=== PATIENT | female | born 1990 | race Two or more races ===

== ENCOUNTER 2017-12-31 05:43 | Inpatient (IN) | payer OTHER ==
[2017-12-31] MEDS: ELECTROLYTE-148 SOLN 1,000 ML IV SCH ×2 (06:15→14:00)
[2017-12-31] MEDS ORDERED: BETAMET ACET/BETAMET NA PH 30 MG/5 ML VIAL IM ONE (06:30)
[2017-12-31] MEDS ORDERED: AMPICILLIN - 2 GM in SODIUM CHLORIDE 100 ML IVPB ONE (06:30)
[2017-12-31] MEDS ORDERED: TUBERCULIN PPD 5 TU/0.1ML SYRINGE (IN PATIENT USE ONLY) ID ONE (06:36)
[2017-12-31 07:11] LABS: BASO % 0.2 % (0-2.0); EOS % 0.6 % (0-4.5); HEMOGLOBIN 12.7 GM/dL (10.7-15.3); LYMPH % 17.4 % (8-40); MCH 26.4 pg (25.7-33.7); MCHC 34.3 g/dl (32.0-36.0); MEAN CELL VOLUME 77.1 fl (80-96); MEAN PLT VOLUME 9.7 fl (7.5-11.1); MONO % 4.4 % (3.8-10.2); NEUT % 77.4 % (42.8-82.8); PLATELET COUNT 152 K/MM3 (134-434); RBC 4.79 M/mm3 (3.60-5.2); RDW 17.7 % (11.6-15.6); WHITE BLOOD COUNT 8.6 K/mm3 (4.0-10.0)
[2017-12-31 07:14] VITALS: BMI 31.9
[2017-12-31 08:06] LABS: INR 1.04 (0.82-1.09); PROTHROMBIN TIME (PATIENT) 11.7 SEC (9.7-13.0)
[2017-12-31 08:09] LABS: ACTIVATED PTT 25.7 SECONDS (25.2-36.5)
[2017-12-31 08:14] LABS: ANION GAP 12 (8-16); BLOOD UREA NITROGEN 5 mg/dL (7-18); CALCIUM 8.8 mg/dL (8.5-10.1); CHLORIDE 109 mmol/L (98-107); CO2 20 mmol/L (21-32); CREATININE 0.4 mg/dL (0.55-1.02); GLUCOSE,RANDOM 87 mg/dL (74-106); SODIUM 141 mmol/L (136-145)
[2017-12-31 08:17] LABS: POTASSIUM 4.1 mmol/L (3.5-5.1)
[2017-12-31] MEDS: AMPICILLIN - 1 GM in SODIUM CHLORIDE 100 ML IVPB SCH ×3 (10:30→18:14)
--- NOTE | 2017-12-31 11:33 | HP ---
Past Medical History - Admission Chief Complaint: Rupture of membrane History of Present Illness: 27 yo , @ 35 weeks gestation, EDC 02/10/18, presents to L&D c/o rupture of membrane. Upon admission there was evidence of gross pooling but cervix was closed. History Source: Patient Limitations to Obtaining History: No Limitations - Past Medical History ...: 1 ...Para: 0 ...Term: 0 ...: 0 ...Spon : 0 ...Induced : 0 ...Multiple Gestation: 0 ...LMP: 05/06/17 ... Weeks Gestation by Dates: 34.1 ...EDC by Dates: 02/10/18 ...EDC by Sono: 02/03/18 - Past Surgical History Past Surgical History: Yes: None Hx Myomectomy: No Hx Transabdominal Cerclage: No - Smoking History Smoking history: Never smoked Have you smoked in the past 12 months: No - Alcohol/Substance Use Hx Alcohol Use: No History of Substance Use: reports: None - Social History Usual Living Arrangement: Yes: With Spouse Home Medications - Allergies Allergies/Adverse Reactions: Allergies Allergy/AdvReac Type Severity Reaction Status Date / Time No Known Allergies Allergy Verified 12/28/17 11:03 - Home Medications Home Medications: Ambulatory Orders Ferrous Sulfate [Iron] 325 mg PO DAILY 12/28/17 Vit No.130/Iron/Folic [ Vitamins] 1 each PO DAILY 12/28/17 Family Disease History - Family Disease History Family History: Unremarkable Review of Systems - Review of Systems Constitutional: reports: No Symptoms Eyes: reports: No Symptoms HENT: reports: No Symptoms Neck: reports: No Symptoms Cardiovascular: reports: No Symptoms Respiratory: reports: No Symptoms Gastrointestinal: reports: No Symptoms Genitourinary: reports: Other (Rupture of membrane) Breasts: reports: No Symptoms Reported Musculoskeletal: reports: No Symptoms Integumentary: reports: No Symptoms Neurological: reports: No Symptoms Psychiatric: reports: No Symptoms Pain Intensity: 0 Physical Exam - Maternity Vital Signs: Vital Signs Temperature 98.7 F 12/31/17 10:00 Pulse Rate 98 H 12/31/17 10:00 Respiratory Rate 12/31/17 10:00 Blood Pressure 124/76 12/31/17 10:00 O2 Sat by Pulse Oximetry (%) Constitutional: Yes: Well Nourished Eyes: Yes: Conjunctiva Clear Neck: Yes: Supple Cardiovascular: Yes: Regular Rate and Rhythm Lungs: Clear to auscultation - Abdominal Exam/OB Number of Fetuses: Single Presentation: Vertex - Vaginal Exam/OB Amniotic Membrane Status: Leaking Amniotic Fluid: Yes: Clear Presentation: Vertex/Position Station: -3 - Physical Exam Musculoskeletal: Yes: WNL Extremities: Yes: WNL ...Motor Strength: WNL Psychiatric: Yes: Alert, Oriented - Labs Lab Results: CBC, BMP 12/31/17 06:36 12/31/17 06:36 Problem List - Problems (1) premature rupture of membranes (PPROM) with unknown onset of labor Code(s): O42.919 - PRETRM WINSTON ROM, UNSP TIME BETW RUPT AND ONST LABR, UNSP TRI Assessment/Plan PPROM 35 weeks gestation Admit to L&D Ampicillin Betamethasone
[2017-12-31] MEDS ORDERED: AMPICILLIN SODIUM 1 GM VIAL ONE (22:30)
[2018-01-01] MEDS ORDERED: AMPICILLIN SODIUM 1 GM VIAL ONE ×6 (02:18→22:22)
[2018-01-01] MEDS: AMPICILLIN - 1 GM in SODIUM CHLORIDE 100 ML IVPB SCH ×5 (02:30→23:11)
[2018-01-01] MEDS: ELECTROLYTE-148 SOLN 1,000 ML IV SCH (06:15)
[2018-01-01] MEDS ORDERED: BETAMET ACET/BETAMET NA PH 30 MG/5 ML VIAL IM ONE (06:30)
[2018-01-01 07:32] LABS: BASO % 0.2 % (0-2.0); EOS % 0.4 % (0-4.5); HEMATOCRIT 30.8 % (32.4-45.2); HEMOGLOBIN 10.6 GM/dL (10.7-15.3); LYMPH % 20.3 % (8-40); MCHC 34.5 g/dl (32.0-36.0); MEAN CELL VOLUME 78.2 fl (80-96); MEAN PLT VOLUME 9.7 fl (7.5-11.1); MONO % 6.3 % (3.8-10.2); NEUT % 72.8 % (42.8-82.8); PLATELET COUNT 133 K/MM3 (134-434); RBC 3.94 M/mm3 (3.60-5.2); RDW 17.7 % (11.6-15.6); WHITE BLOOD COUNT 8.8 K/mm3 (4.0-10.0)
[2018-01-01] MEDS: PRENATAL VITAMINS W/ FOLIC ACID TABLET (FP) PO SCH (10:30)
[2018-01-01] MEDS ORDERED: DINOPROSTONE 10 MG VAGINAL SUPPOSITORY VG ONE (13:15)
--- NOTE | 2018-01-01 15:53 | PN ---
Progress Note (short form) - Note Progress Note: 27 yo admitted for PPROM, seen and evaluated. She's afebrile. She c/o lower abdominal cramps and back pain. She's status post 2 doses of Betamethasone. FHR : Reassuring Sylvia : Occasional contractions VE : /-3 A / P : PPROM Status post steroid Continue ampicillin Cervidil induction F/U CBC Anticipate vaginal delivery Problem List - Problems (1) premature rupture of membranes (PPROM) with unknown onset of labor Code(s): O42.919 - PRETRM WINSTON ROM, UNSP TIME BETW RUPT AND ONST LABR, UNSP TRI
--- NOTE | 2018-01-01 20:24 | PN ---
Progress Note (short form) - Note Progress Note: Patient re-evaluated, she c/o mild discomfort. Cervidil was removed due to evidence of decelerations. Pitocin will be started. PPROM Pitocin augmentation Analgesia as needed Continue close monitoring. Problem List - Problems (1) premature rupture of membranes (PPROM) with unknown onset of labor Code(s): O42.919 - PRETRM WINSTON ROM, UNSP TIME BETW RUPT AND ONST LABR, UNSP TRI
[2018-01-01] MEDS ORDERED: PROMETHAZINE HCL 25 MG/1 ML VIAL IVPUSH PRN (20:25)
[2018-01-01] MEDS ORDERED: PROMETHAZINE HCL 25 MG/1 ML VIAL ONE (20:29)
[2018-01-01] MEDS ORDERED: BUTORPHANOL TARTRATE 1 MG/ML VIAL ONE ×2 (20:29)
[2018-01-01] MEDS ORDERED: OXYTOCIN 30 UNITS in 0.9% NS 30 UNIT/500 ML INFUS.BAG IVPB ONE (20:29)
[2018-01-01] MEDS ORDERED: OXYTOCIN 30 UNITS in 0.9% NS 30 UNIT/500 ML INFUS.BAG IVPB SCH (20:30)
[2018-01-01] MEDS ORDERED: BUTORPHANOL TARTRATE 1 MG/ML VIAL IVPUSH ONE (20:45)
[2018-01-02] MEDS ORDERED: AMPICILLIN SODIUM 1 GM VIAL ONE (02:24)
[2018-01-02] MEDS: AMPICILLIN - 1 GM in SODIUM CHLORIDE 100 ML IVPB SCH ×5 (02:30→17:46)
[2018-01-02] MEDS ORDERED: morphine SULFATE/Preservative Free 0.5 MG/ML (1cc Syringe) EP ONE (03:12)
[2018-01-02] MEDS ORDERED: ONDANSETRON 4 MG/2 ML VIAL IVPUSH PRN (03:12)
[2018-01-02] MEDS ORDERED: morphine SULFATE/Preservative Free 0.5 MG/ML (1cc Syringe) ONE (03:55)
[2018-01-02] MEDS ORDERED: BUPIVACAINE 0.75% IN DEXTROSE/PF 2ML AMPULE NR ONE (03:59)
[2018-01-02] MEDS ORDERED: OXYTOCIN 20 UNITS in 0.9% NS 20 UNIT/1,000 ML INFUS.BAG IV ONE (04:01)
[2018-01-02] MEDS ORDERED: ceFAZolin SODIUM 1 GM VIAL ONE (04:09)
[2018-01-02] MEDS ORDERED: OXYTOCIN 10 UNITS/ML VIAL ONE (04:15)
[2018-01-02] MEDS: OXYTOCIN 20 UNITS in 0.9% NS 20 UNIT/1,000 ML INFUS.BAG IV SCH ×2 (04:20→14:00)
[2018-01-02] MEDS ORDERED: MIDAZOLAM HCL 2 MG/2 ML SINGLE DOSE VIAL ONE (04:30)
[2018-01-02] MEDS ORDERED: ENALAPRILAT DIHYDRATE 2.5 MG/2 ML VIAL IVPB ONE (04:30)
[2018-01-02] MEDS ORDERED: METHYLERGONOVINE MALEATE 0.2 MG/1 ML AMP IM PRN (04:52)
--- NOTE | 2018-01-02 04:58 | OP ---
Operative Note - Note: Operative Date: 01/02/18 Pre-Operative Diagnosis: Heart rate decelerations Operation: Primary Low Transverse Findings: Baby boy in cephallic presentation Post-Operative Diagnosis: Same as Pre-op Surgeon: Lory Hernandez Public Relations Coordinator: Jack Jama Anesthesia: Spinal Specimens Removed: Placenta Estimated Blood Loss (mls): 600 Operative Report Dictated: Yes
--- NOTE | 2018-01-02 05:01 | PN ---
Progress Note (short form) - Note Progress Note: Patient re-evaluated. She's on Pitocin, There's evidence of deceleration. Discontinue Pitocin. Problem List - Problems (1) premature rupture of membranes (PPROM) with unknown onset of labor Code(s): O42.919 - PRETRM WINSTON ROM, UNSP TIME BETW RUPT AND ONST LABR, UNSP TRI
--- NOTE | 2018-01-02 05:04 | PN ---
Progress Note (short form) - Note Progress Note: Patient seen and evaluated She had another episode of decelerations. Decision made for Consent signed Anesthesia to see patient Problem List - Problems (1) premature rupture of membranes (PPROM) with unknown onset of labor Code(s): O42.919 - PRETRM WINSTON ROM, UNSP TIME BETW RUPT AND ONST LABR, UNSP TRI
[2018-01-02] MEDS ORDERED: IBUPROFEN 800 MG/8 ML IJ IVPB ONE (06:00)
[2018-01-02] MEDS: IBUPROFEN 800 MG/8 ML IJ IVPB PRN ×2 (06:00→19:32)
[2018-01-02] MEDS: FERROUS SO4 325 MG TABLET (FP) PO SCH ×2 (08:24→17:12)
[2018-01-02] MEDS: ELECTROLYTE-148 SOLN 1,000 ML IV SCH (08:44)
[2018-01-02] MEDS: PRENATAL VITAMINS W/ FOLIC ACID TABLET (FP) PO SCH (09:20)
[2018-01-02] MEDS ORDERED: PRENATAL VITAMINS W/ FOLIC ACID TABLET (FP) PO SCH (10:00)
[2018-01-03] MEDS: IBUPROFEN 600 MG TABLET (FP) PO PRN ×5 (00:14→21:38)
[2018-01-03] MEDS: SIMETHICONE 80 MG TAB.CHEW (FP) PO PRN ×5 (00:14→21:37)
[2018-01-03] MEDS: oxyCODONE HCL 5 MG TABLET PO PRN ×5 (00:14→21:38)
[2018-01-03] MEDS ORDERED: BISACODYL 10 MG SUPP.RECT RC PRN (04:52)
[2018-01-03 07:54] LABS: BASO % 0.3 % (0-2.0); EOS % 0.3 % (0-4.5); HEMATOCRIT 31.6 % (32.4-45.2); HEMOGLOBIN 10.6 GM/dL (10.7-15.3); LYMPH % 12.1 % (8-40); MCH 26.4 pg (25.7-33.7); MCHC 33.7 g/dl (32.0-36.0); MEAN CELL VOLUME 78.5 fl (80-96); MEAN PLT VOLUME 9.5 fl (7.5-11.1); MONO % 7.6 % (3.8-10.2); NEUT % 79.7 % (42.8-82.8); PLATELET COUNT 121 K/MM3 (134-434); RBC 4.03 M/mm3 (3.60-5.2); RDW 17.7 % (11.6-15.6); WHITE BLOOD COUNT 9.1 K/mm3 (4.0-10.0)
[2018-01-03] MEDS: FERROUS SO4 325 MG TABLET (FP) PO SCH ×2 (08:41→17:27)
--- NOTE | 2018-01-03 09:34 | PN ---
Progress Note, Physician Chief Complaint: s/p c section under spinal anesthesia History of Present Illness: post op day one, duramorph for post op pain control - Current Medication List Current Medications: Active Medications Bisacodyl (Dulcolax Suppository -) 10 mg RC PRN PRN PRN Reason: CONSTIPATION Ferrous Sulfate (Feosol -) 325 mg PO BIDWM [facility] Last Admin: 01/03/18 08:41 Dose: 325 mg Ibuprofen (Motrin -) 600 mg PO Q4H PRN PRN Reason: PAIN LEVEL 1 - 3 Last Admin: 01/03/18 05:32 Dose: 600 mg Methylergonovine Maleate (Methergine Injection -) 0.2 mg IM Q4H PRN PRN Reason: Excessive Bleeding (L&D) Oxycodone HCl (Roxicodone -) 5 mg PO Q4H PRN PRN Reason: PAIN LEVEL 4 - 6 Last Admin: 01/03/18 05:32 Dose: 5 mg Multivit/Folic Acid/Iron ( Vitamins (Sjr) -) 1 tab PO DAILY [facility] Last Admin: 01/02/18 09:20 Dose: Not Given Simethicone (Mylicon -) 80 mg PO Q4H PRN PRN Reason: GAS Last Admin: 01/03/18 05:33 Dose: 80 mg - Objective Vital Signs: Vital Signs Temperature 98.5 F 01/03/18 02:00 Pulse Rate 83 01/03/18 02:00 Respiratory Rate 18 01/03/18 04:00 Blood Pressure 99/67 01/03/18 02:00 O2 Sat by Pulse Oximetry (%) 97 01/02/18 07:45 Constitutional: Yes: Well Nourished Cardiovascular: Yes: WNL Respiratory: Yes: WNL Gastrointestinal: Yes: WNL Labs: CBC, BMP 01/03/18 06:55 12/31/17 06:36 INR, PTT INR 1.04 (0.82-1.09) 12/31/17 06:36 Assessment/Plan complaining of headache started after the patient attempted to stand and got dizzy. Currently no vision changes, headache does not appear to be positional, no nausea or vomiting or associated symptoms. Advised to take tylenol, motrin and drink fluids. No intervention at this time but if headache does not resolve, contact the dept of anesthesia for evaluation of post dural puncture headache.
[2018-01-03] MEDS: PRENATAL VITAMINS W/ FOLIC ACID TABLET (FP) PO SCH (09:57)
--- NOTE | 2018-01-03 11:17 | PN ---
Progress Note (short form) - Note Progress Note: pod 1 doing well, no c/o .voids ok Last Vital Signs Temp Pulse Resp BP Pulse Ox 98.5 F 82 20 112/68 97 01/03/18 10:00 01/03/18 10:00 01/03/18 10:00 01/03/18 10:00 01/02/18 07:45 Last Vital Signs Temp Pulse Resp BP Pulse Ox 98.5 F 82 20 112/68 97 01/03/18 10:00 01/03/18 10:00 01/03/18 10:00 01/03/18 10:00 01/02/18 07:45 CBC, BMP 01/03/18 06:55 12/31/17 06:36 abdomen soft, no distension, no cva incision dry, clean no calf tenderness plan ambulate, advance diet pain management
--- NOTE | 2018-01-03 12:04 | PATH ---
Surgical Pathology Report Patient Name: JESIKA RIVERO Med. Rec. 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 Specimen(s) Received PLACENTA Clinical History 35.1 weeks gestation, prolonged rupture of membranes, gestational diabetes Previous surgery: right eye surgery Postoperative diagnosis: primary section Final Diagnosis PLACENTA, SECTION: 430 g THIRD TRIMESTER PLACENTA WITH TRIVASCULAR UMBILICAL CORD AND UNREMARKABLE PLACENTAL MEMBRANES. Electronically Signed Suze Downey M.D. Gross Description The specimen is received fresh labeled placenta and is a 430 gram, 17 x 16 x 1.8 cm. placenta with attached membranes and umbilical cord. The attached membranes are white-baptiste and translucent and insert marginally. The umbilical cord measures 21 cm in length and averages 1.5 cm in diameter. The cord inserts eccentrically, 3 cm to the nearest margin. No true knots or strictures are identified. Cut surface of the umbilical cord reveals 3 vessels. The surface is galan-blue with minimal fibrin deposition and appropriate caliber vessels. The maternal surface is red-brown with focal defects. Sectioning reveals red-brown, spongy parenchyma. No lesions are identified. Pharmacy Order Entry Technician sections are submitted in three cassettes as follows: 1- membrane rolls and umbilical cord; 2-3- full thickness sections of placenta. MLSZ/01/02/2018 sannaz/01/02/2018
[2018-01-03] MEDS ORDERED: ACETAMINOPHEN/CAFFEINE/BUTALBITAL 1 TAB PO PRN (14:40)
[2018-01-04] MEDS: IBUPROFEN 600 MG TABLET (FP) PO PRN ×3 (05:47→22:26)
[2018-01-04] MEDS: oxyCODONE HCL 5 MG TABLET PO PRN ×2 (05:47→22:26)
[2018-01-04] MEDS: SIMETHICONE 80 MG TAB.CHEW (FP) PO PRN ×3 (05:47→22:26)
[2018-01-04] MEDS: FERROUS SO4 325 MG TABLET (FP) PO SCH ×2 (08:20→19:04)
[2018-01-04] MEDS: PRENATAL VITAMINS W/ FOLIC ACID TABLET (FP) PO SCH (09:14)
[2018-01-04] MEDS: ACETAMINOPHEN 325 MG TABLET (FP) PO PRN (22:25)
--- NOTE | 2018-01-04 22:43 | PN ---
Progress Note (short form) - Note Progress Note: POD 2 S/P C/S , DOING WELL, PASSING GAS , AMBULATING CBC, BMP 01/03/18 06:55 12/31/17 06:36 Last Vital Signs Temp Pulse Resp BP Pulse Ox 97.7 F 78 20 115/78 97 01/04/18 10:00 01/04/18 10:00 01/04/18 10:00 01/04/18 10:00 01/02/18 07:45 ABDOMEN SOFT, NO DISTENSION, NO CVA INCISION DRY, CLEAN NO CALF TENDERNESS PLAN AMBULATE, CBC IN AM
--- NOTE | 2018-01-05 07:09 | PN ---
Progress Note (short form) - Note Progress Note: pod 3 doing well, no c/o CBC, BMP 12/31/17 06:36 Last Vital Signs Temp Pulse Resp BP Pulse Ox 97.6 F 87 18 104/69 97 01/04/18 22:00 01/04/18 22:00 01/04/18 22:00 01/04/18 22:00 01/02/18 07:45 abdomen soft, no distension , no cva incision dry, clean no calf tenderness lochia mild plan ambulate , cbc
[2018-01-05 07:18] LABS: BASO % 0.5 % (0-2.0); EOS % 2.5 % (0-4.5); HEMATOCRIT 32.2 % (32.4-45.2); HEMOGLOBIN 10.8 GM/dL (10.7-15.3); LYMPH % 21.6 % (8-40); MCH 26.3 pg (25.7-33.7); MCHC 33.6 g/dl (32.0-36.0); MEAN CELL VOLUME 78.4 fl (80-96); MEAN PLT VOLUME 9.1 fl (7.5-11.1); MONO % 5.7 % (3.8-10.2); NEUT % 69.7 % (42.8-82.8); PLATELET COUNT 169 K/MM3 (134-434); RBC 4.11 M/mm3 (3.60-5.2); RDW 17.3 % (11.6-15.6); WHITE BLOOD COUNT 9.2 K/mm3 (4.0-10.0)
[2018-01-05] MEDS: FERROUS SO4 325 MG TABLET (FP) PO SCH ×2 (09:04→17:04)
[2018-01-05] MEDS: PRENATAL VITAMINS W/ FOLIC ACID TABLET (FP) PO SCH (09:04)
[2018-01-05] MEDS: IBUPROFEN 600 MG TABLET (FP) PO PRN ×2 (14:08→20:53)
[2018-01-05] MEDS: ACETAMINOPHEN 325 MG TABLET (FP) PO PRN ×2 (14:09→20:53)
[2018-01-05] MEDS: SIMETHICONE 80 MG TAB.CHEW (FP) PO PRN (20:53)
[2018-01-06 08:19] VITALS: BP 119/72; PULSE 79; TEMP 98.4
[2018-01-06] MEDS: PRENATAL VITAMINS W/ FOLIC ACID TABLET (FP) PO SCH (09:41)
[2018-01-06] MEDS: ACETAMINOPHEN 325 MG TABLET (FP) PO PRN (09:42)
[2018-01-06] MEDS: IBUPROFEN 600 MG TABLET (FP) PO PRN (09:42)
[2018-01-06] MEDS: FERROUS SO4 325 MG TABLET (FP) PO SCH (09:42)
[2018-01-06] MEDS: SIMETHICONE 80 MG TAB.CHEW (FP) PO PRN (09:43)
== END 2018-01-06 11:15 | disposition home or self-care (01) | DRG 540 ==
LOC: JDEL 05:43 → JLDR 06:02 → J3W 01-02 08:00
PROVIDERS: ADMIT Obstetrics & Gynecology; ATTEND Obstetrics & Gynecology
PROC: 10D00Z1 Extraction of Products of Conception, Low, Open Approach (ICD-10-PCS; principal; 2018-01-02)
DX: O42.013 Preterm premature rupture of membranes, onset of labor within 24 hours of rupture, third trimester (principal); O60.14X0 Preterm labor third trimester with preterm delivery third trimester, not applicable or unspecified; O76 Abnormality in fetal heart rate and rhythm complicating labor and delivery; Z3A.35 35 weeks gestation of pregnancy; Z37.0 Single live birth
CPT/HCPCS: 36415; 80048; 82962; 85025; 85610; 85730; 86593; 86762; 86850; 86900; 86901; 87389; 88307-TC; 96372